=== PATIENT | female | born 1980 | race Caucasian/White ===

== ENCOUNTER 2016-07-25 16:20 | Emergency (ER) | payer BC ==
--- NOTE | 2016-08-05 17:46 | ER ---
ADMIT: 07/25/2016 RM/LOC: ER [facility] MR#: [id number] [place], [place] [id number] JOSEFINA AVERY [address] [place] [address] Emergency Room Report SEX: F AGE: 36 : 1980 DATE: 07/25/2016 ADDENDUM: This patient comes to the ER from Urgent Care today. She was seen earlier today and diagnosed with a left lower lobe pneumonia. She felt like she was having increased pain. She called back to the Urgent Care, and they told her to come to the ER. She did bring a copy of the x-ray and blood work with her. I was able to load the x-ray and had Dr. Quiles read it, and he did not see a left lower lobe pneumonia. He called it a normal x-ray. I did do a see a D-dimer, which was normal. Her O2 saturation was normal in the ER, but she did have pain in the left chest and in the left back. She was given [place], which improved her pain. She already has prescribed Levaquin and albuterol. We will have her continue with that. I wrote prescription for [address] [place]. She is to follow up with her primary as needed. Return to the ER for any difficulty breathing. Please see my T-sheet. ANTHONY Polo / Willem Quiles MD / [place] JOB #: [id number] CC: Willem Quiles MD, Attending Physician Francisco Javier Hollingsworth MD, Family Physician
== END 2016-07-25 19:07 | disposition home or self-care (01) ==
LOC: ER 16:20
DX: J06.9 Acute upper respiratory infection, unspecified (principal); Z79.899 Other long term (current) drug therapy